=== PATIENT | female | born 1995 | race Caucasian/White ===

== ENCOUNTER 2019-01-01 01:35 | Outpatient (CLI) | payer MEDICAID ==
[2019-01-01 03:01] LABS: ADD UMIC YES; UR AMORPHOUS CRYSTAL MANY /HPF (NONE SEEN); UR ASCORBIC ACID NEGATIVE (NEGATIVE); UR BACTERIA MODERATE /HPF (NONE SEEN); UR BILIRUBIN (Dip) NEGATIVE (NEGATIVE); UR BLOOD (Dip) NEGATIVE (NEGATIVE); UR CLARITY TURBID (CLEAR); UR COLOR YELLOW (YELLOW); UR GLUCOSE (Dip) NEGATIVE (NEGATIVE); UR KETONES (Dip) NEGATIVE (NEGATIVE); UR LEUKOCYTE ESTERASE (Dip) 1+ Leu/ul (NEGATIVE); UR MUCUS FEW /HPF (NONE SEEN); UR NITRITE (Dip) NEGATIVE (NEGATIVE); UR NONSQUAMOUS EPITHELIAL CELL 512 /HPF (NONE SEEN); UR RBC 6 /HPF (0-5); UR SPECIFIC GRAVITY (Dip) 1.013 (1.003-1.030); UR SQUAMOUS EPITHELIAL CELL FEW /HPF (FEW); UR TOTAL PROTEIN (Dip) NEGATIVE (NEGATIVE); UR UROBILINOGEN (Dip) NEGATIVE (NEGATIVE); UR WBC 35 /HPF (0-5)
== END 2019-01-01 04:26 | disposition home or self-care (01) ==
LOC: OBT 01:35 → L-D 01:35 → OBT 04:26
DX: O62.9 Abnormality of forces of labor, unspecified (principal); Z3A.35 35 weeks gestation of pregnancy
CPT/HCPCS: 76818; 81001

== ENCOUNTER 2019-01-22 07:45 | Inpatient (IN) | payer MEDICAID ==
[2019-01-22] MEDS: LACTATED RINGER'S 1,000 ML IV (08:28)
[2019-01-22] MEDS: AMPICILLIN 2 GM/NS (PMX) 100 ML IV (08:29)
[2019-01-22] MEDS ORDERED: LIDOCAINE 1% (MPF) 30 ML INJ INJ (08:30)
[2019-01-22] MEDS ORDERED: BUTORPHANOL 2 MG INJ IV ×2 (08:30)
[2019-01-22] MEDS ORDERED: OXYTOCIN 30 UNITS/LR 500 ML IV ×2 (08:30→11:00)
[2019-01-22] MEDS ORDERED: CARBOPROST 250 MCG INJ IM ×2 (08:30→11:00)
[2019-01-22] MEDS ORDERED: METHYLERGONOVINE 0.2 MG INJ IM ×2 (08:30→11:00)
[2019-01-22] MEDS ORDERED: MISOPROSTOL 200 MCG TAB PR ×2 (08:30→11:00)
[2019-01-22] MEDS: OXYTOCIN 30 UNITS/LR 500 ML IV ×3 (10:16→14:45)
[2019-01-22] MEDS: IBUPROFEN 800 MG TAB PO (10:46)
[2019-01-22] MEDS ORDERED: DIBUCAINE 1% 30 GM OINT TOP (11:00)
[2019-01-22] MEDS ORDERED: ACETAMINOPHEN 325 MG TAB PO (11:00)
[2019-01-22] MEDS ORDERED: ONDANSETRON 4 MG INJ IV (11:00)
[2019-01-22] MEDS ORDERED: MAGNESIUM HYDROXIDE 30ML CUP PO (11:00)
[2019-01-22] MEDS ORDERED: AMPICILLIN 1 GM/NS (PMX) 50 ML IV (12:30)
[2019-01-22] MEDS: BENZOCAINE 20% 56 ML SPRAY TOP (15:15)
[2019-01-22] MEDS: WITCH HAZEL/GLYCERIN PAD PR (15:15)
[2019-01-22] MEDS: LANOLIN HPA 1 PKT TOP (15:15)
[2019-01-22] MEDS: IBUPROFEN 600 MG TAB PO (18:48)
[2019-01-22] MEDS: LACTATED RINGER'S 1,000 ML IV* ×2 (20:19→20:24)
[2019-01-23] MEDS: IBUPROFEN 600 MG TAB PO (02:22)
[2019-01-23] MEDS: LACTATED RINGER'S 1,000 ML IV* ×2 (02:50→18:50)
[2019-01-23] MEDS: ACETAMINOPHEN 325 MG TAB PO ×2 (09:30→20:44)
[2019-01-23] MEDS: SENNA/DOCUSATE NA (8.6MG/50MG) TAB PO (20:44)
[2019-01-24] MEDS: LACTATED RINGER'S 1,000 ML IV* ×5 (02:50→11:43)
[2019-01-24] MEDS: IBUPROFEN 600 MG TAB PO (05:45)
[2019-01-24] MEDS: ACETAMINOPHEN 325 MG TAB PO (08:00)
[2019-01-24] MEDS: SENNA/DOCUSATE NA (8.6MG/50MG) TAB PO (08:00)
== END 2019-01-24 13:40 | disposition home or self-care (01) | DRG 807 ==
LOC: OBT 07:45 → L-D 07:45 → OBT 08:11 → L-D 08:09 → PP1 11:15
PROC: 10E0XZZ Delivery of Products of Conception, External Approach (ICD-10-PCS; principal; 2019-01-22)
PROC: 0HQ9XZZ Repair Perineum Skin, External Approach (ICD-10-PCS; 2019-01-22)
PROC: 10907ZC Drainage of Amniotic Fluid, Therapeutic from Products of Conception, Via Natural or Artificial Opening (ICD-10-PCS; 2019-01-22)
DX: O70.0 First degree perineal laceration during delivery (principal); Z37.0 Single live birth; Z3A.38 38 weeks gestation of pregnancy
CPT/HCPCS: 85025; 85610; 85730; 86592; 86850; 86900; 86901; 87340